=== PATIENT | male | born 1950 | race Caucasian/White ===

== ENCOUNTER 2019-03-23 11:41 | Outpatient (REF) | payer MEDICARE, BC, SELFPAY ==
[2019-03-23 21:47] LABS: HCT 42.7 % (40.0-50.0); HGB 14.7 g/dL (13.5-17.5)
[2019-03-23 21:56] LABS: Anion Gap 13.5 mmol/L (3-11); BUN 22 mg/dL (7-18); CO2 27.5 mmol/L (21.0-32.0); CREATININE 1.08 mg/dL (0.70-1.30); Calcium 9.3 mg/dL (8.5-10.1); Chloride 99 mmol/L (98-107); Glucose 115 mg/dL (70-100); Potassium 4.1 mmol/L (3.5-5.1); Sodium 140 mmol/L (136-145)
== END 2019-03-23 12:01 ==
LOC: NCHCN 11:41
PROVIDERS: PCP Family Medicine; Visit Provider Specialist/Technologist Athletic Trainer
DX: I25.10 Atherosclerotic heart disease of native coronary artery without angina pectoris (principal); I10 Essential (primary) hypertension
CPT/HCPCS: 80048; 85014; 85018

== ENCOUNTER 2019-10-13 20:44 | Outpatient (REF) | payer MEDICARE, BC, SELFPAY ==
[2019-10-13 22:51] LABS: Anion Gap 12.4 mmol/L (3-11); BUN 26 mg/dL (7-18); CO2 27.6 mmol/L (21.0-32.0); CREATININE 1.21 mg/dL (0.70-1.30); Calcium 9.2 mg/dL (8.5-10.1); Calculated LDL 98 mg/dL (<100); Chloride 99 mmol/L (98-107); Cholesterol 177 mg/dL (<200); Estimated GFR 59.64 (mL/min/1.73m2); Glucose 115 mg/dL (74-106); HDL Cholesterol 44 mg/dL (40-60); Potassium 4.2 mmol/L (3.5-5.1); Sodium 139 mmol/L (136-145); Triglyceride 177 mg/dL (<150)
== END 2019-10-13 21:04 ==
LOC: NCHCN 20:44
PROVIDERS: PCP Family Medicine; Visit Provider Specialist/Technologist Athletic Trainer
DX: E78.5 Hyperlipidemia, unspecified (principal); I25.10 Atherosclerotic heart disease of native coronary artery without angina pectoris
CPT/HCPCS: 80048; 80061

== ENCOUNTER 2021-01-22 16:24 | Outpatient (REF) | payer MEDICARE, BC, SELFPAY ==
[2021-01-22 21:38] LABS: Hemoglobin A1C 5.8 % (<5.7)
[2021-01-22 21:47] LABS: Anion Gap 13.1 mmol/L (3-11); BUN 22 mg/dL (7-18); CO2 25.9 mmol/L (21.0-32.0); CREATININE 1.2 mg/dL (0.70-1.30); Calcium 9.1 mg/dL (8.5-10.1); Calculated LDL 93 mg/dL (<100); Chloride 100 mmol/L (98-107); Cholesterol 166 mg/dL (<200); Estimated GFR 59.86 (mL/min/1.73m2); Glucose 95 mg/dL (74-106); HDL Cholesterol 44 mg/dL (40-60); Potassium 4.4 mmol/L (3.5-5.1); Sodium 139 mmol/L (136-145); Triglyceride 148 mg/dL (<150)
== END 2021-01-22 16:25 | disposition home or self-care (01) ==
LOC: NCHCN 16:24
PROVIDERS: PCP Family Medicine; Visit Provider Internal Medicine
DX: R73.9 Hyperglycemia, unspecified (principal); E78.5 Hyperlipidemia, unspecified; I10 Essential (primary) hypertension
CPT/HCPCS: 80048; 80061; 83036